=== PATIENT | male | born 1955 | race Caucasian/White ===

== ENCOUNTER 2017-03-31 12:06 | Day surgery (SDC) | payer BC, OTHER ==
[2017-03-27 14:32] VITALS: BMI 29.4
[~2017-03-31 12:06] MED LIST: LACTATED RINGERS 1,000 ML IV SCH
[2017-03-31 12:40] VITALS: TEMP 98.7
[2017-03-31] MEDS ORDERED: LACTATED RINGERS 1,000 ML IV ONE (12:40)
[2017-03-31] MEDS ORDERED: LIDOCAINE 1% 20 ML VIAL (10MG/ML) FOR IV START INTRADERMA ONE (12:41)
[2017-03-31] MEDS ORDERED: GLYCOPYRROLATE 0.2 MG/ML 2 ML VIAL ONE (13:29)
[2017-03-31] MEDS ORDERED: LIDOCAINE 1% INJ 10MG/ML (20 ML MDV) ONE (13:29)
[2017-03-31] MEDS ORDERED: KETAMINE 10 MG/ML 20 ML VIAL ONE (13:29)
[2017-03-31] MEDS ORDERED: PROPOFOL 10 MG/ML 20 ML VIAL IV ONE (13:29)
[2017-03-31] MEDS ORDERED: IV FLUID CONTINUATION 550 ML IV ONE (13:57)
--- NOTE | 2017-03-31 14:01 | P.PCN ---
Date of Procedure: 03/31/17 Preoperative Diagnosis: Postoperative Diagnosis: Procedure(s) Performed: Procedure: 1. Esophagogastroduodenoscopy and biopsy. 2. Total colonoscopy. Preoperative diagnosis: Abdominal pain and chronic reflux symptoms and history of polyps. Postoperative diagnosis: 1 Small sliding hiatal hernia with no obvious esophagitis or complicated reflux disease. 2 Mild antral gastritis. 3 Colon exam within normal limits. Preparation: HalfLytely prep. Sedation: Was provided by anesthesia. Brief clinical history: The patient is a 61-year-old male who was evaluated in the office last month for left lower quadrant abdominal pain of around 2 months duration. The patient has history of polyps and his last colonoscopy was more than 5 years ago. There is also history of acid reflux and his last EGD in 2011 showed grade 2-3 esophagitis. The patient has been on omeprazole 20 mg daily and would become symptomatic off the medication. Procedure: With the patient on his left lateral decubitus position and after informed consent and adequate sedation, I passed the Olympus-GIF 160 video upper endoscope through the cricopharyngeus down the esophagus. GE junction was around 40 cm from the incisors and there was a small sliding hiatal hernia. The esophagus did not show any obvious esophagitis or complicated reflux disease. The endoscope was then passed into the stomach which was insufflated with air and inspected in detail including the retroflex view in the cardia. There was some mottling and erythema in the antrum but no ulcers or erosions. Pyloric channel, duodenal bulb, post bulbar area and descending duodenum appeared within normal limits. Because of his symptoms, I obtained biopsies from the duodenum, antrum and esophagus then the endoscope was withdrawn and I proceeded to do colonoscopy. Perianal area did not show any fissures or fistulas. There were no masses felt on digital rectal examination. The Olympus CFQ 160L video colonoscope was then inserted in the rectum in the usual fashion and advanced to the cecum. The mucosa appeared healthy. No polyps or tumors were seen or any obvious diverticular disease or other pathology. I retroflexed the endoscope in the rectum before the endoscope was withdrawn. The patient tolerated the procedure well. Plan: The patient was reassured. Will await pathology results. Further plans can be made based on his course and biopsy results. With a history of polyps, I recommended repeat colonoscopy in 5 years. Implants: Indications for Procedure: Operative Findings: Description of Procedure:
[2017-03-31 14:23] VITALS: BP 134/78; PULSE 59; RESP 18
== END 2017-03-31 14:25 | disposition home or self-care (01) ==
LOC: ORWHC2ENDO 12:06
DX: Z12.11 Encounter for screening for malignant neoplasm of colon (principal); K21.0 Gastro-esophageal reflux disease with esophagitis; K29.50 Unspecified chronic gastritis without bleeding; K44.9 Diaphragmatic hernia without obstruction or gangrene; Z86.010 Personal history of colon polyps; I10 Essential (primary) hypertension; E78.5 Hyperlipidemia, unspecified; J45.909 Unspecified asthma, uncomplicated; Z79.899 Other long term (current) drug therapy; Z79.51 Long term (current) use of inhaled steroids
CPT/HCPCS: 43239; 88305; 88342

== ENCOUNTER → 2017-05-20 | Outpatient (CLI) | payer BC ==
[2017-05-20 10:32] LABS: Basophils # (A) 0.1 k/uL (0-0.2); Basophils % (A) 1 %; CH 30.3; CHCM 34.9; Eosinophils # (A) 0.2 k/uL (0-0.7); Eosinophils % (A) 3 %; HCT 47.6 % (39.0-53.0); HDW 2.75; HGB 15.5 gm/dL (13.0-17.5); Luc % (Auto) 3; Lymphocytes # (A) 1.5 k/uL (1.0-4.8); Lymphocytes % (A) 21 %; MCH 28.5 pg (25.0-35.0); MCHC 32.7 g/dL (31.0-37.0); MCV 87.3 fL (80.0-100.0); Mean Platelet Volume 7.9; Monocytes # (A) 0.4 k/uL (0-1.0); Monocytes % (A) 6 %; Neutrophils # (A) 4.7 k/uL (1.3-7.7); Neutrophils % (A) 67 %; RBC 5.45 m/uL (4.30-5.90); RDW 14.5 % (11.5-15.5); WBC 7.1 k/uL (3.8-10.6); WBC (Perox) 7.09
== END | disposition home or self-care (01) ==
LOC: LABWHC1 09:23
PROVIDERS: ATTEND Physical Medicine & Rehabilitation
DX: M51.36 Other intervertebral disc degeneration, lumbar region (principal); M51.26 Other intervertebral disc displacement, lumbar region; M47.817 Spondylosis without myelopathy or radiculopathy, lumbosacral region
CPT/HCPCS: 36415; 84165; 85025

== ENCOUNTER 2021-05-12 02:02 | Emergency (ER) | payer MEDICARE, BC ==
[2021-05-12 02:07] VITALS: BP 134/87; PULSE 66; RESP 19; TEMP 97.6
--- NOTE | 2021-05-12 03:10 | CT ---
EXAMINATION TYPE: CT brain wo con DATE OF EXAM: 05/12/2021 COMPARISON: None HISTORY: fall CT DLP: 1173.4 mGycm Automated exposure control for dose reduction was used. There is cerebral cortical atrophy. There is no mass effect nor midline shift. There is no sign of in tracranial hemorrhage. There is some white matter hypodensity in both parietal lobes consistent with some chronic small vessel ischemia. The calvarium is intact. Skull base is intact. There is occipital scalp soft tissue swelling in the midline. IMPRESSION: Cerebral atrophy and probable chronic small vessel ischemia. No acute intracranial abnormality. Occip ital small scalp hematoma noted.
--- NOTE | 2021-05-12 03:17 | ED ---
Head Injury HPI - General Chief complaint: Head Injury Stated complaint: Fall Time Seen by Provider: 05/12/21 02:33 Source: patient, family Mode of arrival: wheelchair - History of Present Illness MD Complaint: head injury, head pain, fall -: minutes(s) Mechanism of Injury: mechanical fall Location: occipital Loss of Consciousness: no Previous Trauma to this Area: No Place: home Radiation: none Severity: moderate Quality: dull Consistency: constant Other Injuries: none Associated Symptoms: denies other symptoms - Related Data Home Medications Medication Instructions Recorded Confirmed Fluticasone/Salmeterol [Advair 1 puff IH BID 06/05/14 03/27/17 250-50 Diskus] Metoprolol Succinate (ER) [Toprol 12.5 mg PO QAM 06/05/14 03/27/17 XL] Omeprazole [PriLOSEC] 20 mg PO AC-BRKFST 06/05/14 03/27/17 Aspirin 81 mg PO DAILY 03/27/17 03/27/17 Multivitamins, Thera [Multivitamin 1 tab PO DAILY 03/27/17 03/27/17 (formulary)] Simvastatin [Zocor] 10 mg PO DAILY 03/27/17 03/27/17 Allergies/Adverse reactions: Allergies Allergy/AdvReac Type Severity Reaction Status Date / Time No Known Allergies Allergy Verified 05/12/21 02:07 Review of Systems ROS Statement: Those systems with pertinent positive or pertinent negative responses have been documented in the HPI. ROS Other: All systems not noted in ROS Statement are negative. Constitutional: Denies: fever, chills, weakness Eyes: Denies: vision change Respiratory: Denies: cough, dyspnea Cardiovascular: Denies: chest pain, palpitations Gastrointestinal: Denies: abdominal pain, vomiting, diarrhea Genitourinary: Denies: dysuria, hematuria Musculoskeletal: Denies: back pain Skin: Denies: rash Neurological: Reports: headache. Denies: weakness, confusion, abnormal gait Hematological/Lymphatic: Denies: easy bleeding Past Medical History Past Medical History: Asthma, GERD/Reflux, Hypertension Additional Past Medical History / Comment(s): currently having pain lower left abdomen History of Any Multi-Drug Resistant Organisms: None Reported Past Surgical History: Appendectomy, Orthopedic Surgery, Tonsillectomy Additional Past Surgical History / Comment(s): JAW SURGERY, EYE SURGERY R/T TRAUMA, SINUS SURGERY, ROTATOR CUFF, RIGHT ELBOW Past Anesthesia/Blood Transfusion Reactions: Previous Problems w/ Anesthesia Additional Past Anesthesia/Blood Transfusion Reaction / Comment(s): has trouble waking up from anesthesia. no hx blood transfusion Past Psychological History: No Psychological Hx Reported Smoking Status: Never smoker Past Alcohol Use History: Occasional Past Drug Use History: None Reported - Past Family History Mother Family Medical History: Cancer Additional Family Medical History / Comment(s): lung Father Family Medical History: Coronary Artery Disease (CAD) Additional Family Medical History / Comment(s): brain aneurysm Sister(s) Family Medical History: Myocardial Infarction ([place]) Additional Family Medical History / Comment(s): at age 34 from [place] General Exam General appearance: alert, in no apparent distress Head exam: Present: normocephalic, other (Patient has abrasion near the occiput. No bony deformity. There is some mild to moderate localized tenderness) Eye exam: Present: normal appearance, PERRL, EOMI. Absent: scleral icterus, conjunctival injection, nystagmus ENT exam: Present: normal oropharynx Neck exam: Present: normal inspection, full ROM. Absent: tenderness Respiratory exam: Present: normal lung sounds bilaterally. Absent: respiratory distress, wheezes, rales, rhonchi, stridor Cardiovascular Exam: Present: regular rate, normal rhythm, normal heart sounds. Absent: systolic murmur, diastolic murmur, rubs, gallop GI/Abdominal exam: Present: soft. Absent: distended, tenderness, guarding, rebound, rigid, mass Extremities exam: Present: normal inspection, normal capillary refill. Absent: pedal edema, calf tenderness Back exam: Present: normal inspection. Absent: vertebral tenderness Neurological exam: Present: alert, oriented X3, CN II-XII intact. Absent: motor sensory deficit Skin exam: Present: warm, dry, intact, normal color. Absent: rash Course Vital Signs 05/12/21 02:03 Temperature 97.6 F Pulse Rate 66 Respiratory 19 Rate Blood Pressure 134/87 O2 Sat by Pulse 98 Oximetry Disposition Clinical Impression: Closed head injury Disposition: HOME SELF-CARE Condition: Good Instructions (If sedation given, give patient instructions): Concussion (ED) Is patient prescribed a controlled substance at d/c from ED?: No Referrals: Avila Sal MD [Primary Care Provider] - 1-2 days
[2021-05-12] MEDS ORDERED: BACITRACIN OINT 1 EACH PACKET TOPICAL ONE (03:30)
[2021-05-12] MEDS ORDERED: PANTOPRAZOLE 40 MG TABLET PO STA (03:30)
== END 2021-05-12 03:41 | disposition home or self-care (01) ==
LOC: EC 02:02
DX: S09.90XA Unspecified injury of head, initial encounter (principal); I10 Essential (primary) hypertension; J45.909 Unspecified asthma, uncomplicated; K21.9 Gastro-esophageal reflux disease without esophagitis; Z90.49 Acquired absence of other specified parts of digestive tract; Z79.82 Long term (current) use of aspirin; Z90.89 Acquired absence of other organs; W01.0XXA Fall on same level from slipping, tripping and stumbling without subsequent striking against object, initial encounter
CPT/HCPCS: 70450; 99283

== ENCOUNTER → 2023-05-07 | Outpatient (CLI) | payer MEDICARE | END | disposition home or self-care (01) | LOC: LABWHC1 10:37 | PROVIDERS: ATTEND Urology | DX: R97.20 Elevated prostate specific antigen [PSA] (principal) | CPT/HCPCS: 36415; 84153; 84154 ==

== ENCOUNTER 2023-10-23 13:40 | Emergency (ER) | payer MEDICARE ==
--- NOTE | 2023-10-23 13:59 | ED ---
General Adult HPI - General Source: patient, RN notes reviewed Mode of arrival: ambulatory Limitations: no limitations <Gurmeet Eric - Last Filed: 10/23/23 13:58> - General Source: RN notes reviewed, old records reviewed Mode of arrival: ambulatory Limitations: no limitations <Tomas Millard - Last Filed: 11/01/23 20:10> - General Stated complaint: Coughing up blood Time Seen by Provider: 10/23/23 13:50 - History of Present Illness Initial comments: Quick [id number] male presents emergency department chief complaint of hemoptysis. Patient states that he was at a local store when he coughed and there is a large amount of blood and fluid that he coughed up. He states it happened several times though it is slowing down. He states he feels it in the center of his chest. Does have history of asthma denies any blood thinners other than taking a daily aspirin. Patient has any leg pain leg swelling no h istory of DVT or PE. (Gurmeet Eric) - Related Data Home Medications Medication Instructions Recorded Confirmed Fluticasone Propion/Salmeterol 1 puff IH BID 06/05/14 03/27/17 [Advair 250-50 Diskus] Metoprolol Succinate (ER) [Toprol 12.5 mg PO QAM 06/05/14 03/27/17 XL] Omeprazole [PriLOSEC] 20 mg PO AC-BRKFST 06/05/14 03/27/17 Aspirin 81 mg PO DAILY 03/27/17 03/27/17 Multivitamins, Thera [Multivitamin 1 tab PO DAILY 03/27/17 03/27/17 (formulary)] Simvastatin [Zocor] 10 mg PO DAILY 03/27/17 03/27/17 Previous Rx's Medication Instructions Recorded Amoxic-Pot Clav 875-125Mg 1 tab PO Q12HR #20 tablet 10/23/23 [Augmentin 875-125] Azithromycin [Zithromax] 500 mg PO DAILY #5 tab 10/23/23 Allergies Allergy/AdvReac Type Severity Reaction Status Date / Time No Known Allergies Allergy Verified 10/23/23 14:46 Review of Systems ROS Other: All systems not noted in ROS Statement are negative. <Gurmeet Eric - Last Filed: 10/23/23 13:58> ROS Other: All systems not noted in ROS Statement are negative. <Tomas Millard - Last Filed: 11/01/23 20:10> ROS Statement: Those systems with pertinent positive or pertinent negative responses have been documented in the HPI. Past Medical History Past Medical History: Asthma, GERD/Reflux, Hypertension Additional Past Medical History / Comment(s): currently having pain lower left abdomen History of Any Multi-Drug Resistant Organisms: None Reported Past Surgical History: Appendectomy, Orthopedic Surgery, Tonsillectomy Additional Past Surgical History / Comment(s): JAW SURGERY, EYE SURGERY R/T TRAUMA, SINUS SURGERY, ROTATOR CUFF, RIGHT ELBOW Past Anesthesia/Blood Transfusion Reactions: Previous Problems w/ Anesthesia Additional Past Anesthesia/Blood Transfusion Reaction / Comment(s): has trouble waking up from anesthesia. no hx blood transfusion Past Psychological History: No Psychological Hx Reported Smoking Status: Never smoker Past Alcohol Use History: Occasional Past Drug Use History: None Reported - Past Family History Mother Family Medical History: Cancer Additional Family Medical History / Comment(s): lung Father Family Medical History: Coronary Artery Disease (CAD) Additional Family Medical History / Comment(s): brain aneurysm Sister(s) Family Medical History: Myocardial Infarction ([place]) Additional Family Medical History / Comment(s): at age 34 from [place] <Gurmeet Eric M - Last Filed: 10/23/23 13:58> General Exam <JeanethGurmeet M - Last Filed: 10/23/23 13:58> General appearance: alert, in no apparent distress Head exam: Present: atraumatic, normocephalic, normal inspection Eye exam: Present: normal appearance, PERRL, EOMI. Absent: scleral icterus, conjunctival injection, periorbital swelling ENT exam: Present: normal exam, mucous membranes moist Neck exam: Present: normal inspection. Absent: tenderness, meningismus, lymphadenopathy Respiratory exam: Present: normal lung sounds bilaterally. Absent: respiratory distress, wheezes, rales, rhonchi, stridor Cardiovascular Exam: Present: regular rate, normal rhythm, normal heart sounds. Absent: systolic murmur, diastolic murmur, rubs, gallop, clicks GI/Abdominal exam: Present: soft, normal bowel sounds. Absent: distended, tenderness, guarding, rebound, rigid Extremities exam: Present: normal inspection, full ROM, normal capillary refill. Absent: tenderness, pedal edema, joint swelling, calf tenderness Back exam: Present: normal inspection Neurological exam: Present: alert, oriented X3, CN II-XII intact Psychiatric exam: Present: normal affect, normal mood Skin exam: Present: warm, dry, intact, normal color. Absent: rash <Tomas Millard - Last Filed: 11/01/23 20:10> - General Exam Comments Initial Comments: Visual Physical Exam Vital signs reviewed General: Well-appearing, nontoxic, no acute distress. Head: Normocephalic, atraumatic Eyes: PERRLA, EOMI ENT: Airway patent Chest: Nonlabored breathing Skin: No visual rash, normal skin tone Neuro: Alert and oriented 3 Musculoskeletal: No gross abnormalities (Gurmeet Eric) Course <Tomas Millard - Last Filed: 11/01/23 20:10> Vital Signs 10/23/23 10/23/23 10/23/23 14:44 17:08 19:42 Temperature 98.4 F Pulse Rate 66 89 80 Respiratory 20 20 Rate Blood Pressure 159/89 174/115 O2 Sat by Pulse 99 97 Oximetry 10/23/23 10/23/23 20:12 21:46 Temperature Pulse Rate 88 71 Respiratory 18 Rate Blood Pressure 151/81 O2 Sat by Pulse 95 Oximetry - Reevaluation(s) Reevaluation #1: Medical records reviewed (Tomas Millard) Reevaluation #2: Patient symptoms unchanged (Tomas Millard) Reevaluation #3: Patient informed of results and questions answered (Tomas Millard) Reevaluation #4: Was pt. sent in by a medical professional or institution (, PA, [employer], urgent care, hospital, or [place] [facility] facility...) When possible be specific @ -no Did you speak to anyone other than the patient for history (EMS, parent, family, police, friend...)? What history was obtained from this source @ -no Did you review nursing and triage notes (agree or disagree)? Why? @ -agree Are old charts reviewed (outside hosp., previous admission, EMS record, old EKG, old radiological studies, urgent care reports/EKG's, [place] health [facility] facility records)? Report findings @ -yes Differential Diagnosis (chest pain, altered mental status, abdominal pain women, abdominal pain men, vaginal bleeding, weakness, fever, dyspnea, syncope, headache, dizziness, GI bleed, back pain, seizure, CVA, palpatations, mental health, musculoskeletal)? @ -prior EKG interpreted by me (3pts min.). @ -yes X-rays interpreted by me (1pt min.). @ -yes negative for acute disease CT interpreted by me (1pt min.). @ -no U/S interpreted by me (1pt. min.). @ -no What testing was considered but not performed or refused? (CT, X-rays, U/S, labs)? Why? @ -none What meds were considered but not given or refused? Why? @ -none Did you discuss the management of the patient with other professionals (professionals i.e. , PA, [employer], lab, RT, psych nurse, social media community manager, fork lift truck operator, teacher, chief security and safety officer, casework supervisor)? Give summary @ -no Was smoking cessation discussed for >3mins.? @ -no Was critical care preformed (if so, how long)? @ -no Were there social determinants of health that impacted care today? How? (Homelessness, low income, unemployed, alcoholism, drug addiction, transportation, low edu. Level, literacy, decrease access to med. care, snf, rehab)? @ -none Was there de-escalation of care discussed even if they declined (Discuss DNR or withdrawal of care, Hospice)? DNR status @ -no What co-morbidities impacted this encounter? (DM, HTN, Smoking, COPD, CAD, Cancer, CVA, ARF, Chemo, Hep., AIDS, mental health diagnosis, sleep apnea, morbid obesity)? @ -none Was patient admitted / discharged? Hospital course, mention meds given and route, prescriptions, significant lab abnormalities, going to OR and other pertinent info. @ - Undiagnosed new problem with uncertain prognosis? @ -no Drug Therapy requiring intensive monitoring for toxicity (Heparin, Nitro, Insulin, Cardizem)? @ -no Were any procedures done? @ -no Diagnosis/symptom? @ - Acute, or Chronic, or Acute on Chronic? @ -Acute Uncomplicated (without systemic symptoms) or Complicated (systemic symptoms)? @ -Complicated Side effects of treatment? @ -no Exacerbation, Progression, or Severe Exacerbation? @ -exacerbation Poses a threat to life or bodily function? How? (Chest pain, [place], [place], pneumonia, PE, COPD, DKA, ARF, appy, cholecystitis, CVA, Diverticulitis, Homicidal, Suicidal, threat to staff... and all critical care pts) @ -yes (Tomas Millard) EKG Findings - EKG Comments: EKG Findings:: EKG IS SINUS 67 ID 178 QRS 98 QTc 398 - EKG Results: EKG: interpreted by ERMD <Tomas Millard - Last Filed: 11/01/23 20:10> Medical Decision Making <Gurmeet Eric - Last Filed: 10/23/23 13:58> - Lab Data Result diagrams: 10/23/23 15:42 10/23/23 15:42 <Tomas Millard - Last Filed: 11/01/23 20:10> - Medical Decision Making I completed the quick note portion of this chart signed Gurmeet Eric PA-C (Gurmeet Eric) - Lab Data Lab Results 10/23/23 10/23/23 10/23/23 Range/Units 15:42 15:42 15:42 WBC 8.9 (3.8-10.6) k/uL RBC 5.29 (4.30-5.90) m/uL Hgb 14.8 (13.0-17.5) gm/dL Hct 44.8 (39.0-53.0) % MCV 84.8 (80.0-100.0) fL MCH 28.0 (25.0-35.0) pg MCHC 33.0 (31.0-37.0) g/dL RDW 14.6 (11.5-15.5) % Plt Count 180 (150-450) k/uL MPV 8.0 Neutrophils % 83 % Lymphocytes % 9 % Monocytes % 5 % Eosinophils % 1 % Basophils % 0 % Neutrophils # 7.4 (1.3-7.7) k/uL Lymphocytes # 0.8 L (1.0-4.8) k/uL Monocytes # 0.4 (0-1.0) k/uL Eosinophils # 0.1 (0-0.7) k/uL Basophils # 0.0 (0-0.2) k/uL PT 10.3 (10.0-12.5) sec INR 0.9 (<1.2) APTT 24.5 (22.0-30.0) sec D-Dimer 0.35 (<0.60) mg/L FEU Sodium 138 (137-145) mmol/L Potassium 4.2 (3.5-5.1) mmol/L Chloride 104 (98-107) mmol/L Carbon Dioxide 22 (22-30) mmol/L Anion Gap 12 mmol/L BUN 17 (9-20) mg/dL Creatinine 1.05 (0.66-1.25) mg/dL Est GFR (CKD-EPI)AfAm 84 (>60 ml/min/1.73 sqM) Est GFR (CKD-EPI)NonAf 73 (>60 ml/min/1.73 sqM) Glucose 110 H (74-99) mg/dL Plasma Lactic Acid Danilo (0.7-2.0) mmol/L Calcium 9.8 (8.4-10.2) mg/dL Magnesium 2.0 (1.6-2.3) mg/dL Total Bilirubin 0.8 (0.2-1.3) mg/dL AST 24 (17-59) U/L ALT 19 (4-49) U/L Alkaline Phosphatase 135 H (38-126) U/L Troponin I (0.000-0.034) ng/mL NT-Pro-B Natriuret Pep 34 pg/mL Total Protein 7.3 (6.3-8.2) g/dL Albumin 4.6 (3.5-5.0) g/dL 10/23/23 10/23/23 Range/Units 15:42 15:42 WBC (3.8-10.6) k/uL RBC (4.30-5.90) m/uL Hgb (13.0-17.5) gm/dL Hct (39.0-53.0) % MCV (80.0-100.0) fL MCH (25.0-35.0) pg MCHC (31.0-37.0) g/dL RDW (11.5-15.5) % Plt Count (150-450) k/uL MPV Neutrophils % % Lymphocytes % % Monocytes % % Eosinophils % % Basophils % % Neutrophils # (1.3-7.7) k/uL Lymphocytes # (1.0-4.8) k/uL Monocytes # (0-1.0) k/uL Eosinophils # (0-0.7) k/uL Basophils # (0-0.2) k/uL PT (10.0-12.5) sec INR (<1.2) APTT (22.0-30.0) sec D-Dimer (<0.60) mg/L FEU Sodium (137-145) mmol/L Potassium (3.5-5.1) mmol/L Chloride (98-107) mmol/L Carbon Dioxide (22-30) mmol/L Anion Gap mmol/L BUN (9-20) mg/dL Creatinine (0.66-1.25) mg/dL Est GFR (CKD-EPI)AfAm (>60 ml/min/1.73 sqM) Est GFR (CKD-EPI)NonAf (>60 ml/min/1.73 sqM) Glucose (74-99) mg/dL Plasma Lactic Acid Danilo 1.0 (0.7-2.0) mmol/L Calcium (8.4-10.2) mg/dL Magnesium (1.6-2.3) mg/dL Total Bilirubin (0.2-1.3) mg/dL AST (17-59) U/L ALT (4-49) U/L Alkaline Phosphatase (38-126) U/L Troponin I <0.012 (0.000-0.034) ng/mL NT-Pro-B Natriuret Pep pg/mL Total Protein (6.3-8.2) g/dL Albumin (3.5-5.0) g/dL Disposition <Gurmeet Eric - Last Filed: 10/23/23 13:58> Is patient prescribed a controlled substance at d/c from ED?: No Time of Disposition: 18:40 <Tomas Millard - Last Filed: 11/01/23 20:10> Clinical Impression: Bronchitis, Hemoptysis, Bronchiolitis, Pneumonia Disposition: HOME SELF-CARE Condition: Good Instructions (If sedation given, give patient instructions): Acute Bronchitis (ED), Coughing Up Blood (Hemoptysis) (ED) Prescriptions: Amoxic-Pot Clav 875-125Mg [Augmentin 875-125] 1 tab PO Q12HR #20 tablet Azithromycin [Zithromax] 500 mg PO DAILY #5 tab Referrals: Avila Sal MD [Primary Care Provider] - 1-2 days
[2023-10-23 15:21] VITALS: TEMP 98.4
--- NOTE | 2023-10-23 15:36 | XR ---
EXAMINATION TYPE: XR chest 2V DATE OF EXAM: 10/23/2023 COMPARISON: 10/29/2022 HISTORY: 67-year-old male with shortness of breath, difficulty breathing TECHNIQUE: PA and lateral views FINDINGS: Heart normal size. Aorta and pulmonary vasculature within normal limits. Mild hyperinflation. Bandlik e areas of probable scarring at the lung bases. Mild diffuse interstitial density. Possible 1.4 cm ri ght upper lobe pulmonary nodule. Otherwise, no consolidation or pleural effusion. IMPRESSION: 1. COPD. 2. Interstitial density has increased. Consider superimposed acute bronchitis. 3. Unable to exclude a 1.4 cm right upper lobe pulmonary nodule versus summation artifact. Nonemergen t follow-up CT chest to exclude a suspicious pulmonary nodule.
[2023-10-23 16:11] LABS: Basophils % (A) 0 %; Eosinophils # (A) 0.1 k/uL (0-0.7); Eosinophils % (A) 1 %; HCT 44.8 % (39.0-53.0); HGB 14.8 gm/dL (13.0-17.5); Lymphocytes # (A) 0.8 k/uL (1.0-4.8); Lymphocytes % (A) 9 %; MCV 84.8 fL (80.0-100.0); Monocytes # (A) 0.4 k/uL (0-1.0); Monocytes % (A) 5 %; Neutrophils # (A) 7.4 k/uL (1.3-7.7); Neutrophils % (A) 83 %; Platelet Count 180 k/uL (150-450); RBC 5.29 m/uL (4.30-5.90); RDW 14.6 % (11.5-15.5); WBC 8.9 k/uL (3.8-10.6)
[2023-10-23 16:21] LABS: ALT 19 U/L (4-49); AST 24 U/L (17-59); African American GFR (CKD) 84 (>60 ml/min/1.73 sqM); Albumin 4.6 g/dL (3.5-5.0); Alkaline Phosphatase 135 U/L (38-126); Anion Gap 12 mmol/L; Blood Urea Nitrogen 17 mg/dL (9-20); Calcium 9.8 mg/dL (8.4-10.2); Carbon Dioxide 22 mmol/L (22-30); Chloride 104 mmol/L (98-107); Glucose 110 mg/dL (74-99); Non-African American GFR(CKD) 73 (>60 ml/min/1.73 sqM); Potassium 4.2 mmol/L (3.5-5.1); Sodium 138 mmol/L (137-145); Total Bilirubin 0.8 mg/dL (0.2-1.3); Total Protein 7.3 g/dL (6.3-8.2)
[2023-10-23 16:22] LABS: INR 0.9 (<1.2); Partial Thromboplastin Time 24.5 sec (22.0-30.0); Prothrombin Time 10.3 sec (10.0-12.5)
[2023-10-23 16:30] LABS: NT-Pro-B-Type Natriuretic Pept 34 pg/mL
[2023-10-23] MEDS ORDERED: RX INFO: IV CONTRAST WAS GIVEN 1 EACH MISC MISCELLANE PRN (17:40)
--- NOTE | 2023-10-23 18:18 | CT ---
EXAMINATION TYPE: CT chest w con CT DLP: 542.4 mGycm, Automated exposure control for dose reduction was used. DATE OF EXAM: 10/23/2023 6:00 PM COMPARISON: Chest radiograph from same day. CLINICAL INDICATION:Male, 67 years old with history of mass, coughing up blood x1 day TECHNIQUE: Multiple axial images were obtained through the chest. Sagittal and coronal reformats were created for review. Contrast used:100 mL of Isovue 300 with IV Contrast (None if empty) Oral contrast used: (None if empty) FINDINGS: LUNGS/ PLEURA: Streaky atelectasis in the lung bases. Tree-in-bud opacities in the left lung base. Gr oundglass opacity in the medial left upper lung. AIRWAY: Patent and unremarkable. HEART: Size within normal limits. MEDIASTINUM: No gross evidence of adenopathy. Small moderate hiatal hernia. VASCULATURE: No aortic aneurysm. MUSCULOSKELETAL: No acute osseous abnormalities SOFT TISSUES/LYMPH NODES: Unremarkable. LOWER NECK: No significant findings. UPPER ABDOMEN: Left simple appearing renal cysts. IMPRESSION: 1. No pulmonary nodules. 2. Left upper lung ground glass opacity as well as Basilar tree-in-bud opacities within the lungs co rrelate for bronchiolitis. Correlate with infectious/inflammatory process. Short-term follow-up recom mended. 3. Small to moderate hiatal hernia.
[2023-10-23] MEDS: SODIUM CHLORIDE 0.9% 1,000 ML IV STA (19:18)
[2023-10-23] MEDS: AZITHROMYCIN 500 MG in SODIUM CHLORIDE 0.9% 250 ML IVPB STA (19:19)
[2023-10-23] MEDS: AMOXIC-POT CLAV 875-125MG 1 EACH TAB PO STA (19:19)
[2023-10-23] MEDS: DEXAMETHASONE SOD PHOSPHATE 10 MG/ML 1 ML VIAL IVP STA (19:20)
[2023-10-23] MEDS: TRANEXAMIC ACID 1,000 MG/10 ML VIAL MISCELLANE ONE (19:34)
[2023-10-23 22:20] VITALS: BP 151/81; PULSE 71; RESP 18
== END 2023-10-23 21:49 | disposition home or self-care (01) ==
LOC: EC 13:40
DX: J21.9 Acute bronchiolitis, unspecified (principal); J18.9 Pneumonia, unspecified organism; I10 Essential (primary) hypertension; J45.909 Unspecified asthma, uncomplicated; K21.9 Gastro-esophageal reflux disease without esophagitis; Z79.82 Long term (current) use of aspirin; Z79.51 Long term (current) use of inhaled steroids; Z79.899 Other long term (current) drug therapy
CPT/HCPCS: 36415; 94640; 93005; 85379; 83880; 80053; 83605; 83735; 84484; 85025; 85610; 85730; 71046; 71260; 99285; 96374; 96375; J1100; J0456; Q9967

== ENCOUNTER → 2023-10-30 | Outpatient (CLI) | payer MEDICARE ==
--- NOTE | 2023-10-30 15:36 | CT ---
EXAMINATION TYPE: CT sinus wo con DATE OF EXAM: 10/30/2023 COMPARISON: None available. HISTORY: Coughing up blood with nasal drainage. CT DLP: 660.80 mGycm. Automated Exposure Control for Dose Reduction was Utilized. TECHNIQUE: CT scan of the sinuses is performed without contrast, axial images are obtained, coronal r eformatted images are also reviewed. FINDINGS: The paranasal sinuses including the frontal, ethmoid, sphenoid, and maxillary sinuses bila terally are well-aerated without abnormal opacification. The ostiomeatal complex is patent bilateral ly on the coronal images. Visualized portion of mastoid air cells show no abnormal opacification. The globes are intact bilate rally. IMPRESSION: The sinuses are clear and the ostiomeatal complex is patent bilaterally.
== END | disposition home or self-care (01) ==
LOC: RADCTMAIN 15:14
PROVIDERS: ATTEND Internal Medicine
DX: J32.9 Chronic sinusitis, unspecified (principal); R04.2 Hemoptysis
CPT/HCPCS: 70486

== ENCOUNTER 2023-11-04 11:12 | Day surgery (SDC) | payer MEDICARE ==
[2023-11-04] MEDS ORDERED: LACTATED RINGERS 1,000 ML IV SCH (11:41)
[2023-11-04] MEDS ORDERED: LIDOCAINE 1% (10MG/ML) FOR IV START INTRADERMA PRN (11:41)
[2023-11-04] MEDS: LACTATED RINGERS 1,000 ML IV SCH (12:02)
[2023-11-04] MEDS ORDERED: KETAMINE HCL IN 0.9 % NACL 50 MG/5 ML SYRINGE ONE (12:03)
[2023-11-04] MEDS ORDERED: MIDAZOLAM 2 MG/2 ML VIAL ONE (12:03)
[2023-11-04] MEDS ORDERED: PROPOFOL 10 MG/ML 20 ML VIAL IV ONE (12:03)
[2023-11-04] MEDS ORDERED: LIDOCAINE 1% INJ 10MG/ML (20 ML MDV) ONE (12:03)
[2023-11-04 12:18] VITALS: RESP 16; TEMP 98
[2023-11-04] MEDS: LIDOCAINE 2% INJ 20 MG/ML INTRATRACH ONE ×2 (12:18)
[2023-11-04 12:51] VITALS: BP 112/77
--- NOTE | 2023-11-04 12:52 | OP ---
OPERATIVE REPORT DATE OF SERVICE : PROCEDURES PERFORMED: Bronchoscopy, and random bronchoalveolar lavage of both airways. PREOPERATIVE DIAGNOSIS: Hemoptysis. POSTOPERATIVE DIAGNOSIS: Hemoptysis secondary to severe tracheobronchitis. ANESTHESIA USED: IV conscious sedation. DESCRIPTION OF PROCEDURE: The patient was brought into the bronchoscopy suite, he was prepared according to the bronchoscopy protocol. The patient was placed in a supine position, a bite block was applied, and O2 was applied via Ventimask. We monitored his O2 saturation continuously, blood pressure was intermittently monitored, and O2 saturation was continuously monitored. Blood pressure was intermittently monitored. Cardiac rhythm was continuously monitored. After adequate IV conscious sedation, the bronchoscope was advanced through the bite block down to the area of the vocal cords. There was some evidence of hyperemia noted over the vocal cords; however, no swelling noted over the vocal cords. Lidocaine was applied over the vocal cords, and the bronchoscope was advanced further down to the trachea. There was evidence of severe tracheitis noted in the subglottic area and all the way down to the distal trachea. There was also evidence of significant purulent thick secretions noted in the trachea and down the airways. Thorough examination was done of the trachea, roel, right upper lobe, right middle lobe, right lower lobe, left upper lobe lingula and left lower lobe. Purulent secretions were suctioned and lavaged, bronchoalveolar lavage was done from different lobes randomly until all the secretions were cleared. Then, another thorough examination was done of the trachea and different lobes, and the findings are findings of severe tracheobronchitis, but no evidence of active bleeding noted. Mucosa was extremely friable and could easily bleed with minimal irritation. Then, the bronchoscope was pulled out of the airways, and examination of both nares was done after topically anesthetizing the nares bilaterally. No evidence of bleeding was noted in the nasal mucosa; however, there was lots of purulent secretions, which were suctioned from both nares bilaterally. The procedure was well tolerated, no complications, fluid which we obtained from the airways was sent for different diagnostic studies. MMODL / IJN: [id number] /
[2023-11-04 13:25] VITALS: PULSE 78
[2023-11-04 21:29] LABS: Appearance,BF Clumped (Clear); RBC, Body Fluid 1400 /UL (0-2000)
[2023-11-05 09:07] LABS: Nucleated Cells, Body Fluid 1625 /UL
== END 2023-11-04 13:01 | disposition home or self-care (01) ==
LOC: ORWHC2ENDO 11:12
PROVIDERS: ATTEND Internal Medicine
DX: J40 Bronchitis, not specified as acute or chronic (principal); J45.20 Mild intermittent asthma, uncomplicated; K21.9 Gastro-esophageal reflux disease without esophagitis; J30.2 Other seasonal allergic rhinitis; I10 Essential (primary) hypertension; E78.5 Hyperlipidemia, unspecified; Z90.89 Acquired absence of other organs; Z90.49 Acquired absence of other specified parts of digestive tract; Z79.899 Other long term (current) drug therapy
CPT/HCPCS: 87798 ×3; 87496; 87498; 87529; 89050; 87502; 87634; 87070; 87205; 87116; 87102; 87077; 87186; 87206; 87635; 31624; J2001 ×2; J2250; J2704

== ENCOUNTER → 2024-08-30 | Outpatient (CLI) | payer MEDICARE ==
[2024-08-30 19:17] LABS: T4, Free (Free Thyroxine) 0.98 ng/dL (0.80-1.80)
== END | disposition home or self-care (01) ==
LOC: LABWHC1 15:14
PROVIDERS: ATTEND Urology
DX: R97.20 Elevated prostate specific antigen [PSA] (principal)
CPT/HCPCS: 36415; 84153; 84402; 84403; 84439; 84443; 84481

== ENCOUNTER → 2024-09-20 | Outpatient (CLI) | payer MEDICARE ==
--- NOTE | 2024-09-21 11:00 | MR ---
EXAMINATION TYPE: MR Prostate wo/w con DATE OF EXAM: 09/20/2024 6:53 AM COMPARISON: None. CLINICAL INDICATION: Male, 68 years old with history of R97.20 ELEVATED PROSTATE SPECIFIC ANTIGEN [PS A]; Elevated PSA TECHNIQUE: Multi-planar, multi-sequence imaging of the pelvis is performed prior to and following the uncomplicated administration of bolus intravenous gadolinium. IV Contrast: 10 mL Gadobutrol Interpretive Criteria: PI-RADS v2.1 SERUM PSA: 05/2023 = 1.65 08/2024 = 9.9 SURGICAL PATHOLOGY: No data available. FINDINGS: Prostatic dimensions: 5.7 x 6.5 x 4.8 cm. Ellipsoid Volume: 93.12 (PSA density=0.11 ng/mL/mL) CENTRAL GLAND (Central and Transition Zones/CZ+TZ): Multiple bilateral, heterogenous appearing hypertrophic stromal nodules, without suspicious lesion. M edian lobe hypertrophy with protrusion into the base of the bladder. (PI-RADS 2) PERIPHERAL ZONE (PZ): Bilateral linear, indistinct wedgelike areas of low ADC, and low T2 signal, No evidence of masslike a bnormality, or localized perfusional hypervascularity, to further suggest a focus of clinically signi ficant prostate cancer. (PI-RADS 2) SEMINAL VESICLES (SV): Symmetric and unremarkable. PERIPROSTATIC TISSUES: Unremarkable. LYMPH NODES: No enlarged pelvic lymph node. REMAINING PELVIS: Trabeculated bladder wall likely secondary to chronic bladder outlet obstruction. No abnormal free or organized intrapelvic fluid collection. No pathologic bowel dilation or mural thickening. No hernia visualized OSSEOUS STRUCTURES: No suspicious osseous abnormality. IMPRESSION: 1. No specific features for high-risk prostate cancer. Maximum PI-RADS score: 2. 2. Substantial BPH, estimated gland volume 93.12 mL. 3. No suspicious osseous lesion. No lymphadenopathy. No evidence of prostate adenocarcinoma involving the periprostatic tissues. [facility], , 09/21/2024 10:57 AM
== END | disposition home or self-care (01) ==
LOC: RADMRIMAIN 05:59
PROVIDERS: ATTEND Urology
DX: N40.0 Benign prostatic hyperplasia without lower urinary tract symptoms (principal); R97.20 Elevated prostate specific antigen [PSA]
CPT/HCPCS: 72197; A9585